=== PATIENT | male | born 1955 | race Caucasian/White ===

== ENCOUNTER 2016-10-27 12:15 | Inpatient (IN) | payer OTHER ==
[~2016-10-27] VITALS: Ht 172.7 cm; Wt 98.4 kg
[~2016-10-27 12:15] MED LIST: ACET650T10 PO; ASPI81TA2 PO; CAPS60CR2 TP; CRESTOR40 MG PO; DULO60CA44 PO; FENO200C PO; GABA-586 PO; GABA600T2 PO; INSU100V31 SQ; INSU100V8 SQ; LISI10TA2 PO; MELO-150 PO; METF10002 PO; METO25TA9 PO
[2016-12-22] MEDS ORDERED: MULT1TAB52 PO (10:44)
--- NOTE | 2017-01-04 16:42 | PDOC1 ---
History and Physical Date of Admission Date of Admission DATE: 01/05/17 Identification/Chief Complaint Chief Complaint right knee osteoarthritis pain Source Source: Chart review History of Present Illness History of Present Illness Papito is here today with his for his bilateral knee pain. He states that the pain is equal in both knees. He would like a recommendation for a course of action regarding injections versus surgery, arthroscopy or total knee replacement. He states that his primary care physician does not think he is too young for the knee replacement. He points to pain on both knees anterior and underneath both kneecaps. He says that his pain varies from dull, sharp, stabbing, and to electrical shock type of pain and rates the severity a 5/10 constantly but can go to 10/10, especially when using the stairs. He has neuropathy which causes both of his hands and feet to be numb and tingly. He has tried Celebrex in the past to manage his pain, which was no help, and has started Mobic just 2 days ago but it is to soon to tell if there is any relief yet. He has also undergone injections of both cortisone and viscosupplementation series but states that they only offered short term help. He does notice stiffness in the morning and after prolonged sitting. He reports crepitus in both knees as well. He had a right calf DVT in 2009. He has type 2 diabetes but is on insulin. He has been keeping himself under better glucose control and his A1c went from 10.6 -7.2 recently. Past Medical History Past Medical History coronary artery stent, h/o LE DVT 2009 Cardiovascular: HTN, ME, Hyperlipidemia Musculoskeletal: Osteoarthritis Endocrine: Diabetes Past Surgical History Past Surgical History heart cath Family History Family History: Cancer, Heart Disease Social History Smoke: No ALCOHOL: none Drugs: None Current Medications Current Medications Current Medications Morphine Sulfate/ Ketorolac Tromethamine/ Ropivacaine/ Epinephrine HCl/ Sodium Chloride (Morphine 5mg Syringe/Toradol/ Naropin 0.5%/ Adrenalin/Iv Sodium Chloride 0.9% 100ml) 100.5 ml @ 100.5 mls/ hr 1X PERIOP ONCE INT ART ; Start 01/05/17 at 06:00; Stop 01/05/17 at 06:59 Active Scripts Active Reported Multivitamins (Multivitamin) 1 Each Tablet 1 Tab PO DAILY Arthritis Pain Reliever (Acetaminophen) 650 Mg Tablet.er 650 Mg PO PRN BID PRN Gabapentin 600 Mg Tablet 600 Mg PO HS Gabapentin 300 Mg Capsule 300 Mg PO DAILY08 Fenofibrate (Fenofibrate,Micronized) 200 Mg Capsule 1 Cap PO DAILY Duloxetine Hcl 60 Mg Capsule.dr 60 Mg PO DAILY Capsaicin 60 Gm Cream..g. 60 Gm TP PRN PRN Meloxicam 15 Mg Tablet 15 Mg PO DAILY Lisinopril 10 Mg Tablet 10 Mg PO HS Lantus (Insulin Glargine,Hum.rec.anlog) 100 Unit/1 Ml Vial 34 Unit SQ DAILY08 Novolog (Insulin Aspart) 100 Unit/1 Ml Vial 11 Unit SQ TIDAC Crestor (Rosuvastatin Calcium) 40 Mg Tablet 40 Mg PO HS Metoprolol Succinate ( Xl ) (Metoprolol Succinate) 25 Mg Tab.er.24h 50 Mg PO DAILY Metformin Hcl 1,000 Mg Tablet 1 Tab PO BID Aspirin 81 Mg Tab.chew 81 Mg PO DAILY Allergies Allergies: Coded Allergies: No Known Drug Allergies (Unverified , 10/01/16) Physical Exam General: Alert, Oriented X3, Cooperative, No acute distress HEENT: Atraumatic, EOMI Lungs: Normal air movement Heart: RRR Abdomen: Soft Extremities: No clubbing, No cyanosis, Normal pulses, Other ( The right knee shows his mildly antalgic gait. There is varus alignment. No masses. No detectable effusion. Tenderness on the joint lines. Range of motion is 5-115 degrees. There is crepitus with range of motion, and pain at the extremes of motion. The knee is stable to varus and valgus stress without subluxation or laxity. Muscle strength is normal (5/5) for quadriceps and hamstrings, and muscle tone is normal. The skin is normal with no scars, rashes, lesions or ulcers. Light touch sensation is intact. No edema and no varicosities. Dorsalis pedis pulse is intact and capillary refill is normal. The left knee shows his mildly antalgic gait. There is varus alignment. No masses. No detectable effusion. Tenderness on the joint lines. Range of motion is 5-115 degrees. There is crepitus with range of motion, and pain at the extremes of motion. The knee is stable to varus and valgus stress without subluxation or laxity. Muscle strength is normal (5/5) for quadriceps and hamstrings, and muscle tone is normal. The skin is normal with no scars, rashes, lesions or ulcers. Light touch sensation is intact. No edema and no varicosities. Dorsalis pedis pulse is intact and capillary refill is normal.) Skin: No rashes, No breakdown, No significant lesion Neuro: Normal speech, Sensation intact Psych/Mental Status: Mental status NL, Mood NL Images Images IMAGING REPORT 45 PA weightbearing view of both knees, lateral, and patella view of the right knee. Clinical information: Bilateral knee pain chronic Comparison: March 2015 Findings Bones: No fracture or dislocation is present. Joints: Both knee joints show degenerative changes, possible joint deformity, narrowing, and osteophyte formation. There is subtle varus, and degenerative changes in all three compartments of each knee. This has progressed minimally since 2014. Soft tissue: Possible loose bodies of the right posterior knee. Vascular calcifications bilateral thigh. Impression: Kellgren Jim grade 2 osteoarthritis changes of both knees. Vascular calcifications. Possible loose body right knee. Dictated and Signed Using Voice Recognition Software Hood Guerrero MD :IMAGING REPORT Bone length studies bilateral hips knees and ankles Clinical information: Preoperative for total knee arthroplasty Comparison: None. Findings Bones: The right hip to ankle distance is 895 mm. The left hip to ankle distance is 898 mm. The right hip-ankle line crosses in the medial joint space of the right knee. The left hip-ankle line crosses slightly medial to the center of the left knee. Both knees have varus alignment. There is severe osteoarthritis of both knees. Joints: The hip joints appear normal. The ankle joints are probably rotated but also show symmetric left and right tibiotalar malalignment, probably congenital, possibly developmental. Soft tissue: Normal. Impression: Posterior arthritis of both knees. 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 Dictated and Signed Using Voice Recognition Software Hood Guerrero MD VTE Prophylaxis Ordered VTE Prophylaxis Devices: Yes VTE Pharmacological Prophylaxi: Yes Assessment/Plan Assessment/Plan Dr. Guerrero and the patient discussed options for treatment. He has bilateral knee osteoarthritis, and has tried Mobic and Celebrex, viscosupplementation, and cortisone injections. He exercises frequently to try to maintain his strength in his legs, and works out in the gym on post doing martial arts or similar exercises frequently. Despite all that he has daily knee pain which limits his activity and impact his activities of daily living. Despite his relatively young age, he has some medical comorbidities, such as vascular disease, type 2 diabetes, neuropathy, cardiac disease, hyperlipidemia and hypertension. His primary care doctor now believes he should proceed with total knee arthroplasty despite his young age and I agree at this time. He is nearly 62 years old, and further delay in knee replacement is likely only to make the surgery more risky due to increasing comorbidities with time. I recommend one knee at a time due to his cardiac and DVT history. The right knee is more symptomatic, I recommended we proceed with a right total knee arthroplasty and a left knee corticosteroid injection under anesthesia at a mutually convenient date. I discussed the 30 year knee technology with him. We discussed risks benefits and alternatives. We discussed the potential risks of infection, neurovascular injury, bleeding, blood clots, need for revision surgery, or other potential surgical or anesthetic complications. Due to his prior DVT I recommended Coumadin for DVT prophylaxis postoperatively. We will want a Hemovac drain. He may be able to return to his work at about four weeks postoperatively. All of his questions were answered. He desires to proceed. NAYANA AVALOS Jan 04, 2017 16:42
[2017-01-05] VITALS (8 sets, daily range): BP systolic 115–133; BP diastolic 54–78
[2017-01-05] MEDS ORDERED: MORPHINE SULFATE 5 MG, KETOROLAC TROMETHAMINE 30 MG, ROPIVacaine 0.5% PF 60 ML, EPINEPH... INT ART ONE ×5 (06:00)
[2017-01-05] MEDS ORDERED: CEFAZOLIN 2GM PREMIX 50 ML IV PRN (06:00)
[2017-01-05] MEDS ORDERED: HYDROCODONE/APAP 7.5/325MG TABLET. PO PRN (06:00)
[2017-01-05] MEDS ORDERED: TRANEXAMIC ACID 1,000 MG in IV NS 50ML -- 1ST BAG INJ ONE (06:00)
[2017-01-05] MEDS ORDERED: MELOXICAM 7.5 MG TABLET PO PRN (06:00)
[2017-01-05] MEDS ORDERED: TOBRAMYCIN POWDER 1.2 GM VIAL. ONE (06:24)
[2017-01-05] MEDS ORDERED: VANCOMYCIN 1 GM VIAL. ONE (06:24)
[2017-01-05] MEDS ORDERED: methylPREDNISolone ACETATE 80 MG/ML VIAL. ONE (06:24)
[2017-01-05] MEDS ORDERED: BUPIVACAINE MPF 0.25% 30 ML VIAL. ONE (06:24)
[2017-01-05] MEDS ORDERED: ONDANSETRON PF 4 MG/2 ML VIAL. ONE (06:56)
[2017-01-05] MEDS ORDERED: LIDOCAINE 2% 100 MG/5 ML DISP.SYRIN. ONE (06:56)
[2017-01-05] MEDS ORDERED: FAMOTIDINE 20 MG/2 ML VIAL ONE (06:56)
[2017-01-05] MEDS ORDERED: DEXAMETHASONE SOD PHOS 20 MG/5 ML VIAL. ONE (06:56)
[2017-01-05] MEDS ORDERED: PROPOFOL 20 ML IV ONE (06:56)
[2017-01-05] MEDS ORDERED: ROCURONIUM 50 MG/5 ML VIAL. ONE (06:57)
[2017-01-05] MEDS ORDERED: FENTANYL PF 100 MCG/2 ML VIAL. ONE (06:57)
[2017-01-05] MEDS ORDERED: FENTANYL PF 100 MCG/2 ML VIAL. IV PRN ×6 (07:00→10:00)
[2017-01-05] MEDS ORDERED: HYDROMORPHONE 2 MG/ML VIAL. IV PRN ×2 (07:00)
[2017-01-05] MEDS ORDERED: ONDANSETRON PF 4 MG/2 ML VIAL. IV PRN ×2 (07:00)
[2017-01-05] MEDS ORDERED: PROCHLORPERAZINE 10 MG/2 ML VIAL. IV PRN ×3 (07:00→10:00)
[2017-01-05] MEDS ORDERED: MORPHINE SULFATE 2 MG/ML DISP.SYRIN. IV PRN ×3 (07:00→10:00)
[2017-01-05] MEDS ORDERED: LIDOCAINE 1% 1 ML SYRINGE. ID PRN ×2 (07:00)
[2017-01-05] MEDS ORDERED: IV RINGERS,LACTATED 1000ML 1,000 ML IV SCH ×2 (07:00)
[2017-01-05] MEDS ORDERED: MIDAZOLAM HCL 2 MG/2 ML VIAL. ONE (07:13)
[2017-01-05] MEDS ORDERED: MORPHINE SULFATE 10 MG/ML VIAL. ONE (07:51)
[2017-01-05] MEDS ORDERED: TRANEXAMIC ACID 1,000 MG in IV NS 50ML -- 2ND BAG INJ ONE (08:00)
[2017-01-05] MEDS ORDERED: hydrALAZINE 20 MG/ML VIAL. ONE (08:22)
[2017-01-05] MEDS ORDERED: SEVOFLURANE > 120 MINUTES. IH ONE (09:22)
[2017-01-05] MEDS ORDERED: NEOSTIGMINE METHYLSULFATE 5 MG/5 ML SYRINGE. ONE (09:23)
[2017-01-05] MEDS ORDERED: GLYCOPYRROLATE 1 MG/5 ML VIAL. ONE (09:23)
--- NOTE | 2017-01-05 09:51 | PDOC4 ---
Operative Note Operative Note Date of Procedure: January 05, 2017 Pre-Op Diagnosis: Osteoarthritis right knee (and left knee) Post-Op Diagnosis: Osteoarthritis right knee (and left knee) Procedure: right total knee arthroplasty (and left knee corticosteroid injection) Surgeon: Rosette Guerrero MD Machined Parts Quality Inspector: Meseret Ga PA-C Anesthesia: General EBL: 100 mL Specimens Obtained: right knee bone and soft tissue Complications: none Implant Company: [employer] Drains: Hemovac plus pain catheter Tourniquet time: 58 minutes Indications for Procedure: Arthritis pain unrelieved by nonoperative management. Findings: Severe osteoarthritis with bone on bone contact medially and at the patellofemoral joint Implants used: Size 4 right bicruciate stabilized Journey II BCS oxinium femoral component, size 4 right Journey nonporous tibial baseplate, size 3-4 10 mm right Journey II BCS XLPE articular insert, 35 mm oval Radha II resurfacing patellar component Procedure in Detail: The patient was identified in the preoperative holding area, and the correct right extremity was marked by me. The left knee was marked for injection only. The patient was taken to the operating room where the patient was anesthetized by the Department of Anesthesia. Preoperative antibiotics were given intravenously. Tranexamic acid 1 g was given intravenously for intraoperative hemostasis. A "time-out" procedure was performed. The patient was positioned supine on the operative table with a tourniquet on the upper right thigh. Using sterile technique, the left knee was injected with 80 mg of Depo Medrol, and 1 mL of 0.25% bupivacaine. A Band Aid was placed. The right lower limb was thoroughly prepped and draped in sterile fashion. An impervious stockinet and adhesive drape were used such that the skin was entirely covered. An [place] leg rodriguez was used. The operating team wore personal exhaust-ventilated hoods. The tourniquet was inflated to 350 mm Hg. A midline skin incision was made with a scalpel using the patella and tibial tubercle as landmarks. Electrocautery was used for hemostasis. My billing and accounting staff assistant used rake retractors. A medial parapatellar arthrotomy incision was used with extension into the distal quadriceps tendon. The patella was retracted laterally and Hohmann retractors were now used by my billing and accounting staff assistant. Excess synovium, the menisci, and the cruciate ligaments were resected sharply. The patella was assessed and excess synovium and osteophytes around the patellar articulation were removed. The patella was measured with a caliper, cut freehand with a saw using caliper measurements, sized, and then drilled for an oval three-pegged patella component. Periarticular injection was used in the suprapatellar pouch and distal quadriceps muscle. Whitesides's line was assessed on the femur. An intra-medullary 5 degree cutting guide was pinned to the femur, and a distal femoral cut was made with an oscillating saw. An additional 2 mm resection was used due to the deep femoral sulcus, and deficient condyle.My billing and accounting staff assistant held Hohmann retractors and an [facility] retractor to protect the medial and lateral collateral ligaments, the patellar tendon, the skin and the other soft tissues. An anterior referencing guide was applied with external rotation of 5 to match Whitesides line. A 5-in-1 Journey II cutting guide was then applied and pinned to the femur. The posterior, anterior, and all chamfer cuts were made with the oscillating saw. An extramedullary guide was pinned to the tibia and rotational alignment and the planned resection thickness assessed. An external alignment elisa was used to verify the planned cut in the varus-valgus plane and regarding posterior slope referencing the tibial tubercle, the tibial shaft, the ankle joint, and the second metatarsal. The upper tibia was cut made with an oscillating saw. My billing and accounting staff assistant held Hohmann retractors and a posterior cruciate ligament retractor to protect the medial and lateral collateral ligaments, the patellar tendon, the skin, the peroneal nerve and the other soft tissues. The upper tibia was sized with a trial baseplate. The posterior compartment was cleared of osteophytes and loose bodies, and posterior capsule released. Sabra-articular injection was used in the posterior compartment. The box cut for a posterior stabilized component was made. A preliminary reduction was performed with a trial femur, trial tibial baseplate and trial polyethylene. Soft-tissue balancing was now performed, and extension and rotation of the alignments was checked using a guide elisa in the tibial trial and a guide pin in the femur. A medial release was required, using a 10 blade scalpel, and a Helm elevator to elevate the medial structures from the upper medial tibia. The stability was assessed using different thicknesses of tibial articular surface to find satisfactory stability and good range of motion. The rotation of the tibial component was marked on the upper tibia. Final trial reduction was now performed verifying patella tracking and tibiofemoral stability and alignment. The tibia preparation was completed with a drill, saw, and fin punch at the previously noted rotation. The final implants were verified and opened. Outer gloves were changed by the operating team. The bone cuts were washed thoroughly with the [employer] InterPulse device and dried. Two packages of Palacos bone cement were mixed in powdered form with 1 gm of Vancomycin and 1.2 g tobramycin, then vacuum-mixed with the monomer, and placed into a cement gun. The cut surfaces of the bone were thoroughly dried with Le-tip suction and with laparotomy sponges for cement interdigitation. The final components were cemented into place. The knee was kept at full extension while the cement hardened, and excess cement was removed. Tranexamic acid 1 g was redosed intravenously for additional intraoperative hemostasis. A final periarticular injection was used for pain relief. The tourniquet was released, and electrocautery was used for hemostasis. A final check of [id number] and stability was made, and the polyethylene implant final size was chosen. The polyethylene implant was secured to the tibial baseplate, and the knee was reduced a final time. Thorough irrigation was used. Hemovac and pain catheter were used.The arthrotomy was closed with interrupted [id number] #1 PDS suture. The capsulotomy was then run with #1 STRATAFIX symmetric PDS plus. The subcutaneous tissues were closed with #2-0 Vicryl by my billing and accounting staff assistant. The skin was reapproximated with 3-0 Monocryl and Steri-Strips by my billing and accounting staff assistant. A bulky sterile dressing was applied. Needle and sponge counts were correct. ROSETTE GUERRERO MD Jan 05, 2017 09:51
[2017-01-05] MEDS ORDERED: CALCIUM CARBONATE 500 MG TAB.CHEW PO PRN (10:00)
[2017-01-05] MEDS: IV DEXTROSE 5 %-0.45 % NACL 1,000 ML IV SCH ×2 (10:00→20:00)
[2017-01-05] MEDS ORDERED: MORPHINE SULFATE 4 MG/ML DISP.SYRIN. IV PRN ×2 (10:00)
[2017-01-05] MEDS ORDERED: DIPHENHYDRAMINE 50 MG/ML VIAL IV PRN (10:00)
[2017-01-05] MEDS ORDERED: MORPHINE SULFATE 10 MG/ML VIAL. IV PRN (10:00)
[2017-01-05] MEDS ORDERED: DEXTROSE 50% 25 GM / 50ML DISP.SYRIN. IV PRN ×2 (10:00→17:45)
[2017-01-05] MEDS ORDERED: PROCHLORPERAZINE 5 MG TABLET. PO PRN (10:00)
[2017-01-05] MEDS ORDERED: METOCLOPRAMIDE HCL 10 MG/2 ML VIAL. IV PRN (10:00)
[2017-01-05] MEDS ORDERED: ZOLPIDEM 5 MG TABLET. PO PRN (10:00)
[2017-01-05] MEDS ORDERED: 0.9 % SODIUM CHLORIDE 10 ML DISP.SYRIN. IV PRN (10:00)
[2017-01-05] MEDS ORDERED: OXYCODONE/APAP 7.5/325 TABLET. PO PRN (10:00)
[2017-01-05] MEDS ORDERED: ACETAMINOPHEN 325 MG TABLET. PO PRN (10:00)
[2017-01-05] MEDS ORDERED: TRAMADOL 50 MG TABLET. PO PRN ×2 (10:00)
--- NOTE | 2017-01-05 10:29 | RAD ---
Indication postop. AP and oblique views of the right knee were obtained. A true lateral view was not obtained. There is a total knee replacement. No complication is seen on the 2 views provided. Postoperative changes are noted in the soft tissues as well as a surgical drain.
[2017-01-05] MEDS ORDERED: INSULIN ASPART 100 UNIT/ML 10ML VIAL. SQ ONE ×2 (11:05→11:07)
[2017-01-05] MEDS ORDERED: PNEUMOCOCCAL VAX SCREEN BY RX. MC ONE (11:30)
--- NOTE | 2017-01-05 11:43 | PDOC ---
Provider Note Provider Note He and I and his discussed the risks/benefits of coumadin vs aspirin for DVT prophylaxis postoperatively, with one prior DVT and no ongoing need for significant anticoagulation. Rather than the coumadin discussed in the office, we will use aspirin for DVT prophylaxis and monitor closely for signs/symptoms of DVT. 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 ROSETTE EWING MD Jan 05, 2017 11:43
[2017-01-05] MEDS: INSULIN ASPART 300 UNITS/3 ML INSULN.PEN SQ SCH (13:53)
[2017-01-05] MEDS: CEFAZOLIN 2GM PREMIX 50 ML IV SCH ×2 (14:02→20:44)
[2017-01-05] MEDS: HYDROCODONE/APAP 7.5/325MG TABLET. PO PRN ×2 (14:06→17:04)
[2017-01-05] MEDS: METFORMIN 1,000 MG TABLET PO SCH (16:48)
[2017-01-05] MEDS: FERROUS SULFATE 325 MG TABLET PO SCH (16:48)
[2017-01-05] MEDS ORDERED: INSULIN ASPART 300 UNITS/3 ML INSULN.PEN SQ ONE (17:45)
[2017-01-05] MEDS: KETOROLAC TROMETHAMINE 30 MG, BUPIVACAINE MPF 0.25% 20 ML, EPINEPHRINE 0.5 MG in TOTAL ... INT ART SCH (17:58)
[2017-01-05] MEDS: ASPIRIN ENTERIC COATED 325 MG TABLET.DR. PO SCH (20:44)
[2017-01-05] MEDS: LISINOPRIL 10 MG TABLET PO SCH (20:44)
[2017-01-05] MEDS: ATORVASTATIN CALCIUM 40 MG TABLET. PO SCH (20:44)
[2017-01-05] MEDS: HYDROCODONE/APAP 10/325 TABLET. PO PRN (20:45)
[2017-01-05] MEDS ORDERED: CELECOXIB 200 MG CAPSULE PO SCH (21:00)
[2017-01-06] MEDS: HYDROCODONE/APAP 10/325 TABLET. PO PRN (00:45)
[2017-01-06] MEDS: CEFAZOLIN 2GM PREMIX 50 ML IV SCH (02:13)
[2017-01-06 03:12] VITALS: BP 124/65
[2017-01-06] MEDS: IV DEXTROSE 5 %-0.45 % NACL 1,000 ML IV SCH ×2 (06:00→16:00)
[2017-01-06] MEDS ORDERED: MAGNESIUM HYDROXIDE 2,400 MG/30 ML ORAL.SUSP. PO PRN (06:00)
[2017-01-06] MEDS: KETOROLAC TROMETHAMINE 30 MG, BUPIVACAINE MPF 0.25% 20 ML, EPINEPHRINE 0.5 MG in TOTAL ... INT ART SCH (06:00)
[2017-01-06 06:39] VITALS: BP 124/63
[2017-01-06] MEDS: METFORMIN 1,000 MG TABLET PO SCH ×2 (07:53→17:06)
[2017-01-06] MEDS: INSULIN ASPART 300 UNITS/3 ML INSULN.PEN SQ SCH ×6 (07:57→17:12)
[2017-01-06] MEDS: FERROUS SULFATE 325 MG TABLET PO SCH ×2 (08:04→17:06)
[2017-01-06] MEDS: SENNOSIDES/DOCUSATE 8.6/50MG TABLET. PO SCH (08:05)
[2017-01-06] MEDS: GABAPENTIN 300 MG CAPSULE. PO SCH (08:05)
[2017-01-06] MEDS: DULOXETINE HCL 30 MG CAPSULE.DR. PO SCH (08:05)
[2017-01-06] MEDS: MELOXICAM 7.5 MG TABLET PO SCH (08:06)
[2017-01-06] MEDS: ASPIRIN ENTERIC COATED 325 MG TABLET.DR. PO SCH ×2 (08:06→20:47)
[2017-01-06] MEDS: MULTIVITAMIN with MINERAL TABLET. PO SCH (08:06)
[2017-01-06] MEDS: FENOFIBRATE,MICRONIZED 134 MG CAPSULE PO SCH (08:07)
[2017-01-06] MEDS: METOPROLOL SUCC 24HR ER 50 MG TAB.ER.24H. PO SCH (08:08)
[2017-01-06] MEDS: INSULIN DETEMIR 300 UNITS/3 ML INSULN.PEN. SQ SCH (08:18)
[2017-01-06] MEDS ORDERED: PNEUMOC CONJ VACC 23-VALENT 0.5 ML VIAL. VAX IM ONE (09:00)
[2017-01-06] MEDS: HYDROCODONE/APAP 7.5/325MG TABLET. PO PRN ×4 (09:12→20:05)
--- NOTE | 2017-01-06 09:58 | PDOC ---
PROGRESS NOTES Subjective Subjective No complaints. Doing well. Objective Vital Signs Vital Signs Date Time Temp Pulse Resp B/P Pulse Ox O2 Delivery O2 Flow Rate FiO2 01/06/17 09:12 Room Air 01/06/17 08:08 90 123/69 01/06/17 06:39 98.1 18 94 98.1 01/05/17 14:06 2.0 Physical Exam Dressing dry. Pain catheter and Hemovac in place. Calf soft and nontender, with a negative Wilton's sign. Good dorsiflexion and plantarflexion of the foot with no evidence of neurovascular injury or DVT. Labs Laboratory Tests Test 01/05/17 06:20 01/05/17 10:16 01/05/17 13:30 01/05/17 16:38 Glucose (Fingerstick) 220mg/dL (70-99) 275mg/dL (70-99) 289mg/dL (70-99) 282mg/dL (70-99) Laboratory Tests Test 01/05/17 10:16 01/05/17 13:30 01/05/17 16:38 Glucose (Fingerstick) 275mg/dL (70-99) 289mg/dL (70-99) 282mg/dL (70-99) Imaging Postoperative x-rays reviewed by me, showing satisfactory total knee replacement , with no apparent complications. Assessment Assessment POD #1 right TKA Problems: Plan Plan of Care Continue POC including DVT prophylaxis and physical therapy. Plan for discharge to home on Wednesday afternoon with outpatient PT at [place]. NAYANA AVALOS Jan 06, 2017 09:58
[2017-01-06] MEDS ORDERED: BISACODYL 10 MG SUPP.RECT PR PRN (16:00)
[2017-01-06 17:36] VITALS: BP 128/71
[2017-01-06 20:30] VITALS: BP 123/69
[2017-01-06] MEDS: ATORVASTATIN CALCIUM 40 MG TABLET. PO SCH (20:47)
[2017-01-06] MEDS: LISINOPRIL 10 MG TABLET PO SCH (20:47)
[2017-01-07] MEDS: IV DEXTROSE 5 %-0.45 % NACL 1,000 ML IV SCH (02:00)
[2017-01-07 06:00] VITALS: BP 138/86
[2017-01-07 06:38] LABS: HEMATOCRIT 29.8 % (39.0-53.0); HEMOGLOBIN 10.3 g/dL (13.0-17.5)
[2017-01-07] MEDS: FENOFIBRATE,MICRONIZED 134 MG CAPSULE PO SCH (07:49)
[2017-01-07] MEDS: GABAPENTIN 300 MG CAPSULE. PO SCH (07:50)
[2017-01-07] MEDS: FERROUS SULFATE 325 MG TABLET PO SCH (07:50)
[2017-01-07] MEDS: DULOXETINE HCL 30 MG CAPSULE.DR. PO SCH (07:50)
[2017-01-07] MEDS: SENNOSIDES/DOCUSATE 8.6/50MG TABLET. PO SCH (07:50)
[2017-01-07] MEDS: METOPROLOL SUCC 24HR ER 50 MG TAB.ER.24H. PO SCH (07:50)
[2017-01-07] MEDS: MULTIVITAMIN with MINERAL TABLET. PO SCH (07:50)
[2017-01-07] MEDS: ASPIRIN ENTERIC COATED 325 MG TABLET.DR. PO SCH (07:51)
[2017-01-07] MEDS: HYDROCODONE/APAP 7.5/325MG TABLET. PO PRN (07:51)
[2017-01-07] MEDS: MELOXICAM 7.5 MG TABLET PO SCH (07:51)
[2017-01-07] MEDS: METFORMIN 1,000 MG TABLET PO SCH (07:51)
[2017-01-07] MEDS: INSULIN ASPART 300 UNITS/3 ML INSULN.PEN SQ SCH ×4 (07:59→11:46)
[2017-01-07] MEDS: INSULIN DETEMIR 300 UNITS/3 ML INSULN.PEN. SQ SCH (08:01)
[2017-01-07] MEDS: OXYCODONE/APAP 5/325 TABLET. PO PRN ×2 (09:35→12:49)
--- NOTE | 2017-01-07 12:39 | PDOC ---
PROGRESS NOTES Subjective Subjective doing well, minimal pain Objective Vital Signs Vital Signs Date Time Temp Pulse Resp B/P Pulse Ox O2 Delivery O2 Flow Rate FiO2 01/07/17 10:41 18 Room Air 01/07/17 07:50 73 138/86 01/07/17 06:00 98.2 94 98.2 01/05/17 14:06 2.0 Physical Exam Knee dressing dry anteriorly, he reported some bleeding from drain site. Pain cath and drain have been removed. Calf soft NT and Wilton's neg. Distal NVI. Able to lift leg off bed, and got to 90 degrees flexion in PT. Labs Laboratory Tests Test 01/05/17 13:30 01/05/17 16:38 01/06/17 07:34 01/06/17 11:18 Glucose (Fingerstick) 289mg/dL (70-99) 282mg/dL (70-99) 220mg/dL (70-99) 260mg/dL (70-99) Test 01/06/17 16:38 01/06/17 21:36 01/07/17 06:00 01/07/17 06:23 Glucose (Fingerstick) 239mg/dL (70-99) 214mg/dL (70-99) 166mg/dL (70-99) Hemoglobin 10.3g/dL (13.0-17.5) Hematocrit 29.8% (39.0-53.0) Mean Corpuscular Hemoglobin Concent 35g/dL (31-37) Test 01/07/17 11:30 Glucose (Fingerstick) 180mg/dL (70-99) Laboratory Tests Test 01/06/17 16:38 01/06/17 21:36 01/07/17 06:00 01/07/17 06:23 Glucose (Fingerstick) 239mg/dL (70-99) 214mg/dL (70-99) 166mg/dL (70-99) Hemoglobin 10.3g/dL (13.0-17.5) Hematocrit 29.8% (39.0-53.0) Mean Corpuscular Hemoglobin Concent 35g/dL (31-37) Test 01/07/17 11:30 Glucose (Fingerstick) 180mg/dL (70-99) Assessment Assessment POD#2 TKA Problems: Plan Plan of Usp today. Continue ASA BID and monitor for calf pain. 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 Outpatient PT. ROSETTE EWING MD Jan 07, 2017 12:39
--- NOTE | 2017-01-07 12:40 | PDOC3 ---
Discharge Summary Visit Information Date of Admission: Jan 05, 2017 Date of Discharge: Jan 07, 2017 Admitting Diagnosis: right knee osteoarthritis pain Final Diagnosis Problems Medical Problems: (1) Osteoarthritis of right knee Status: Acute Brief Hospital Course Allergies Allergies Coded Allergies Type Severity Reaction Last Updated Verified No Known Drug Allergies 01/05/17 No Vital Signs Vital Signs Date Time Temp Pulse Resp B/P Pulse Ox O2 Delivery O2 Flow Rate FiO2 01/07/17 10:41 18 Room Air 01/07/17 07:50 73 138/86 01/07/17 06:00 98.2 94 98.2 Lab Results Laboratory Tests Test 01/05/17 13:30 01/05/17 16:38 01/06/17 07:34 01/06/17 11:18 Glucose (Fingerstick) 289mg/dL (70-99) 282mg/dL (70-99) 220mg/dL (70-99) 260mg/dL (70-99) Test 01/06/17 16:38 01/06/17 21:36 01/07/17 06:00 01/07/17 06:23 Glucose (Fingerstick) 239mg/dL (70-99) 214mg/dL (70-99) 166mg/dL (70-99) Hemoglobin 10.3g/dL (13.0-17.5) Hematocrit 29.8% (39.0-53.0) Mean Corpuscular Hemoglobin Concent 35g/dL (31-37) Test 01/07/17 11:30 Glucose (Fingerstick) 180mg/dL (70-99) Laboratory Tests Test 01/06/17 16:38 01/06/17 21:36 01/07/17 06:00 01/07/17 06:23 Glucose (Fingerstick) 239mg/dL (70-99) 214mg/dL (70-99) 166mg/dL (70-99) Hemoglobin 10.3g/dL (13.0-17.5) Hematocrit 29.8% (39.0-53.0) Mean Corpuscular Hemoglobin Concent 35g/dL (31-37) Test 01/07/17 11:30 Glucose (Fingerstick) 180mg/dL (70-99) Brief Hospital Course 61 year old male who presented with knee osteoarthritis, for elective total knee arthroplasty. The patient underwent total knee arthroplasty under general anesthesia the day of admission. Perioperative antibiotics and DVT prophylaxis were used. Postoperatively physical therapy and case management were consulted. The patient progressed and is stable for discharge. Discharge Information Condition at Discharge: Stable Follow Up: Weeks (2) Disposition/Orders: D/C to Home Scheduled Aspirin (Aspirin) 81 MG PO DAILY (Reported) Duloxetine Hcl (Duloxetine Hcl) 60 MG PO DAILY (Reported) Fenofibrate,Micronized (Fenofibrate) 1 CAP PO DAILY (Reported) Gabapentin (Gabapentin) 300 MG PO DAILY08 (Reported) Gabapentin (Gabapentin) 600 MG PO HS (Reported) Insulin Aspart (Novolog) 11 UNIT SQ TIDAC (Reported) Insulin Glargine,Hum.rec.anlog (Lantus) 34 UNIT SQ DAILY08 (Reported) Lisinopril (Lisinopril) 10 MG PO HS (Reported) Meloxicam (Meloxicam) 15 MG PO DAILY (Reported) Metformin Hcl (Metformin Hcl) 1 TAB PO BID (Reported) Metoprolol Succinate (Metoprolol Succinate ( Xl )) 50 MG PO DAILY (Reported) Multivitamin (Multivitamins) 1 TAB PO DAILY (Reported) Rosuvastatin Calcium (Crestor) 40 MG PO HS (Reported) Scheduled PRN Acetaminophen (Arthritis Pain Reliever) 650 MG PO PRN BID PRN PRN PAIN (Reported ) Capsaicin (Capsaicin) 60 GM TP PRN PRN PRN RASH (Reported) Patient Instructions Patient Instructions Patient Instructions Continue to WBAT with walker. Keep dressing dry and intact. F/U with [facility] in 10-14 days. Call for appointment. Physical therapy for TKA Continue DVT prophylaxis with ASA 325mg twice daily. NAYANA AVALOS Jan 07, 2017 12:40
[2017-01-07] MEDS ORDERED: ASPI325T4 PO (14:06)
[2017-01-07 14:44] VITALS: BP 112/65
--- NOTE | 2017-01-07 15:40 | PATHOLOGY ---
PATHOLOGY REPORT * * * * * * * * FINAL DIAGNOSIS: Segments of bone and soft tissue, right total knee arthroplasty: - Advanced degenerative arthritis. (JPM:csd; d/t: 01/07/2017) REPORT ELECTRONICALLY SIGNED BY: Chester Mg M.D. DATE/TIME: 01/07/2017 15:40 * * * * * * * * GROSS PATHOLOGY: Received in formalin labeled "Papito Cisse, right knee tissue," are multiple segments of bone, including tibial plateau, measuring 9.2 x 6.5 x 1.5 cm in aggregate dimensions admixed with soft tissue; meniscus is not present. The specimen shows focal eburnation of the articular surfaces. Security Guard sections of bone and soft tissue are submitted in cassette A1, following decalcification. (CAA; 01/05/2017) INITIAL CPT CODE(S): A; 50007, 51924 Professional services [place] [place] [address] Technical services performed by [facility] at [address] [place] [address], [facility] [address] [place] [address]. SPECIMEN(S) RECEIVED: A.Right knee tissue CLINICAL HISTORY: Right knee OA PATIENT: PAPITO CISSE /AGE: 906/26/1955 (Age: 61) PATIENT #: [id number] ALT CASE #: SPECIMEN COLLECTION DATE: 01/05/2017 SPECIMEN RECEIVED DATE: 01/05/2017 [facility] - [address] [place] [address] - PHONE: [phone] * * * END OF REPORT * * *
== END 2017-01-07 16:00 | disposition home or self-care (01) | DRG 470 ==
LOC: EDUNIT# 12:15 → OPSVCIP 01-05 05:32 → 4 SOUTHEST 01-05 11:20
PROVIDERS: ADMIT Orthopaedic Surgery; ATTEND Orthopaedic Surgery
PROC: 3E0U33Z Introduction of Anti-inflammatory into Joints, Percutaneous Approach (ICD-10-PCS; 2017-01-05)
PROC: 0SRC0J9 Replacement of Right Knee Joint with Synthetic Substitute, Cemented, Open Approach (ICD-10-PCS; principal; 2017-01-05 07:10)
DX: M17.0 Bilateral primary osteoarthritis of knee (principal); E11.9 Type 2 diabetes mellitus without complications; E78.5 Hyperlipidemia, unspecified; G62.9 Polyneuropathy, unspecified; I10 Essential (primary) hypertension; M21.969 Unspecified acquired deformity of unspecified lower leg; Z86.718 Personal history of other venous thrombosis and embolism; Z95.5 Presence of coronary angioplasty implant and graft; I25.2 Old myocardial infarction; Z98.890 Other specified postprocedural states; Z80.9 Family history of malignant neoplasm, unspecified; Z82.49 Family history of ischemic heart disease and other diseases of the circulatory system
CPT/HCPCS: 36415; 73560; 82947; 85014; 85018; 86850; 86900; 86901; 88305; 88311; J0171; J0360; J0690; J1040; J1100; J1815; J1885; J2250; J2270; J2405; J2704; J2710; J2795; J3010; J3260; J3370; J3490; J7030; J7120; S0028; 97116; 97150; 97530; 97535; C1769